=== PATIENT | male | born 1960 | race Caucasian/White ===

== ENCOUNTER 2019-08-07 00:47 | Outpatient (CLI) | payer OTHER, SELFPAY ==
[2019-08-07 17:00] LABS: SARS-CoV-2 RNA PCR Negative
== END 2019-08-07 00:48 | disposition home or self-care (01) ==
LOC: ANHCOVIDDT 00:47
PROVIDERS: Visit Provider Orthopaedic Surgery
DX: S83.8X9A Sprain of other specified parts of unspecified knee, initial encounter (principal); X58.XXXA Exposure to other specified factors, initial encounter
CPT/HCPCS: 87635; C9803; U0003

== ENCOUNTER 2019-08-07 09:26 | Outpatient (CLI) | payer OTHER, SELFPAY ==
--- NOTE | 2019-08-07 09:31 | ECG_ITS ---
Measurements Intervals [place] Rate: 79 P: LA: 0 QRS: 19 QRSD: 91 T: 27 QT: 354 QTc: 406 Interpretive Statements ATRIAL FIBRILLATION ABNORMAL ECG Electronically Signed On 08-07-2019 10:11:40 CDT by Caleb Liriano D.O.
[2019-08-07 10:40] LABS: Blood Urea Nitrogen 22 mg/dL (9-20); Calcium 9.2 mg/dL (8.4-10.2); Carbon Dioxide 27 mmol/L (22-30); Chloride 105 mmol/L (98-107); Estimated Glomerular Filt Rate > 60; Glucose 94 mg/dL (75-110); Potassium 4.3 mmol/L (3.4-5.0); Sodium 138 mmol/L (137-145)
== END 2019-08-07 09:27 | disposition home or self-care (01) ==
PROVIDERS: Anesthesiology; PCP Family Medicine; Visit Provider Orthopaedic Surgery
DX: S83.8X9A Sprain of other specified parts of unspecified knee, initial encounter (principal); X58.XXXA Exposure to other specified factors, initial encounter; R94.31 Abnormal electrocardiogram [ECG] [EKG]
CPT/HCPCS: 36415; 80048; 87635; 93005; C9803; U0003

== ENCOUNTER 2019-08-09 01:35 | Day surgery (SDC) | payer OTHER, SELFPAY ==
[2019-08-01 13:18] VITALS: BMI 32.7
--- NOTE | 2019-08-04 13:07 | P.HP_ITS ---
H&P: HPI History of Present Illness Chief complaint: Left Knee Medial Meniscal Tear Narrative: Phuc White is a 59 year old male Who presents with left knee pain which started after he was raking leaves. He has pain medially and laterally. He has problems twisting or turning squatting kneeling going up and down stairs. This been ongoing for several months now. He has mechanical symptoms and swelling in the knee occasionally has symptoms are worse with activities somewhat relieved by rest. Despite conservative measures on his own and treatment with the [facility] his symptoms continue. He has had cortisone therapy and anti-inflammatories without significant relief. An MRI scan was done that shows a communicating flap tear of the posterior horn and body of the medial meniscus. The body of the medial meniscus is extruded 3 mm medially. There is mild to moderate thinning of the medial femoral cartilage. There are myxoid degenerative changes of the ACL noted. Rest of the stabilizing structures are unremarkable lateral meniscus is intact. At this point the patient is aware the above findings he knows he has some pre-existing osteoarthritis and may not get full relief is any pain from knee arthroscopy every like to proceed. Review of Systems Review of Systems: All systems reviewed & are unremarkable except as noted in HPI and below PMFSH Social History Social History Gender identity (if verbalized by the patient): Male Meds Home Medications and Allergies Home Medications Medication Instructions Recorded Confirmed Type furosemide [Lasix] 20 mg PO DAILY 08/01/19 08/01/19 History levothyroxine 20 mcg PO DAILY 08/01/19 08/01/19 History metoprolol succinate 200 mg PO BID 08/01/19 08/01/19 History rivaroxaban [Xarelto] 20 mg PO DAILY 08/01/19 08/01/19 History simvastatin 15 mg PO DAILY 08/01/19 08/01/19 History Allergies Allergy/AdvReac Type Severity Reaction Status Date / Time No Known Allergies Allergy Unknown Verified 08/01/19 13:40 Exam Narrative: Exam Narrative: On exam the patient is noted be well-developed well-nourished male no acute distress. HEENT exam within normal limits. Heart regular rate rhythm. Lungs clear auscultation. Abdomen benign. Extremities showed the patient's left knee to be painful with manipulation and range of motion. He has tenderness on the medial joint line with a positive Jerald exam negative Layla knee joint is otherwise stable strength is 5 5. Hips move well negative Stinchfield negative NAYELY. He has mild effusion swelling left knee mild subpatellar crepitation. Neurovascular is intact. Skin is intact. Central nervous system exam within normal limits. Assessment and Plan Additional Plan By MRI and exam the patient is noted have a medial meniscal tear of left knee as described above. The patient has discussed risks benefits limitations and alternatives of surgery in great detail with Dr. Fish he is now to proceed with left knee arthroscopy partial medial meniscectomy proceed as indicated. Patient is scheduled to go surgery 08/09/[address] [facility] Dr. Fish. The patient voiced understanding agrees above plan.
[2019-08-09] VITALS (10 sets, daily range): BP systolic 106–166; BP diastolic 86–116; PULSE 72–91; RESP 12–20; TEMP 35.3–36.2; O2SAT 95–100
--- NOTE | 2019-08-09 07:08 | WPDHPUPDATE1 ---
History and Physical Update Update Date/Time: 08/09/19 07:08 History and Physical has been reviewed, including an updated exam of the patient. There are NO changes in the patient's condition. Risks, benefits, and alternatives have been discussed and questions answered. Patient agrees to proceed with procedure.
[2019-08-09] MEDS: LACTATED RINGERS 1,000 ML 30 ML IV CONT ×2 (08:45→11:27)
--- NOTE | 2019-08-09 09:44 | P.PNAN_ITS ---
Anes - Initial Pre Proc Eval Procedure: Operation Date: 08/09/19 10:30 Proposed Procedures p Left Knee Arthroscopy, Partial Medial Meniscectomy, Proceed As Indicated - Abhinav Fish MD Date/Time: 08/09/19 09:44 Surgeon: Abhinav Fish MD Pre Op Diagnosis: Left Knee Medial Meniscal Tear Patient Data Age: 59 Gender: M Height: 1.88 m Weight: 115.7 kg Allergies Allergy/AdvReac Type Severity Reaction Status Date / Time No Known Allergies Allergy Unknown Verified 08/09/19 09:06 Home Medications Medication Instructions Recorded Confirmed Type furosemide [Lasix] 20 mg PO DAILY 08/01/19 08/09/19 History levothyroxine 20 mcg PO DAILY 08/01/19 08/09/19 History metoprolol succinate 200 mg PO BID 08/01/19 08/09/19 History rivaroxaban [Xarelto] 20 mg PO DAILY 08/01/19 08/09/19 History simvastatin 15 mg PO DAILY 08/01/19 08/09/19 History hydrocodone-acetaminophen [[place]] 1 tablet PO Q6H PRN #40 tablet 08/09/19 Rx Patient hx anesthesia problems: none Family hx anesthesia problems: none PMFSH Past Medical History Medical History (Updated 08/08/19 @ 08:09 by Reji Perez DO) Atrial fibrillation History of left inguinal hernia Hyperlipidemia Hypertension Hypothyroidism Osteoarthritis Social History Social History Gender identity (if verbalized by the patient): Male Anes - Eval Final PreProcedure Day of Procedure 08/09/19 09:44 Patient weight: obese Heart: regular rate and rhythm Lungs: clear to auscultation and normal air movement Airway: Mallampati scale class III Neurological: alert and oriented Last oral intake: >/= 8 hours ASA classification: III Emergent: no Anesthetic plan: proceed Anesthesia type and monitoring: general LMA and standard monitoring Informed Consent: The patient's anesthetic plan and its attendant risks and benefits were discussed with the patient/family/POA. Questions were solicited and answers provided to the satisfaction of the patient/family/POA.
[2019-08-09] MEDS: ceFAZolin 2 GM/D5W 50 ML 2 GM/50 ML BAG IVPB (10:34)
[2019-08-09] MEDS: LIDO 1%/EPINEPHRINE 1:100,000 20 ML VIAL INFILTRATE (11:01)
--- NOTE | 2019-08-09 11:12 | PM.PROC ---
Procedure Note - Detailed Date of procedure: 08/09/19 Pre-op diagnosis: Left Knee Medial Meniscal Tear Post-op diagnosis: same Procedure performed: [Left] knee arthroscopy with partial meniscetomy Description of procedure: Patient brought to the operating room and anesthetic was administered. The knee was steriley prepped and drapped in the usual manner. Standard portals were used. Superior medial portal was used for the outflow cannula, inferior lateral portal was used for the scope, inferior medial portal was used for the instruments. Arthroscopy was performed, the patellar femoral joint degenerative changes. The medial compartment showed a complex tear. The lateral compartment showed fraying. The ACL was intact. Using baskets and nan the meniscal tear was trimmed back to a stable base so the nothing further could be pulled into the joint. Any loose or delaminated fragments were gently trimmed to a stable base. At this point the instruments were withdrawn, sutures placed and patient left the operating room in satisfactory condition. Anesthesia: GETA Surgeon: Abhinav Fish MD Estimated blood loss (mL): 20 Drains: No Packing: No Pathology: none sent Complications: No immediate complications Condition: stable Disposition: PACU
--- NOTE | 2019-08-09 12:13 | SUR.PHASEI ---
1200; DR LOCO NOTIFIED OF PT BP. DIASTOLIC RUNNING LOW 100'S. STATES OK UNLESS DIASTOLIC INCREASES TO 110. WILL CONTINUE TO MONITOR
--- NOTE | 2019-08-09 13:36 | SUR.PHASEII ---
1336 spoke with boss, hes on his way will take about 45 minutes
--- NOTE | 2019-08-09 16:26 | SUR.PHASEII ---
1420 called central to get pt crutches, didn't have any at home, weight as tolerated, but pt a little unsteady. crutch training done with pt prior to discharge
== END 2019-08-09 15:00 | disposition home or self-care (01) ==
PROVIDERS: PCP Family Medicine; Visit Provider Orthopaedic Surgery
PROC: (CPT 29870; principal; 2019-08-09 10:30)
DX: M23.332 Other meniscus derangements, other medial meniscus, left knee (principal); I48.91 Unspecified atrial fibrillation; I10 Essential (primary) hypertension; E78.5 Hyperlipidemia, unspecified; E03.9 Hypothyroidism, unspecified; M19.90 Unspecified osteoarthritis, unspecified site; Z79.01 Long term (current) use of anticoagulants; E66.9 Obesity, unspecified; Z68.35 Body mass index [BMI] 35.0-35.9, adult
CPT/HCPCS: 29881; J0131; J0690; J1100; J1170; J2250; J2405; J2704; J3010; J7120

== ENCOUNTER 2019-08-22 15:39 | Outpatient (CLI) | payer OTHER, SELFPAY ==
--- NOTE | ~2019-08-22 | US_ITS ---
EXAMINATION: US venous doppler [facility] DATE: 08/22/2019 16:22 INDICATION: Meniscus tear of the left knee, left lower limb pain TECHNIQUE: Camacho scale images without and with compression and Doppler images of the left lower extrem ity veins were obtained. COMPARISON: None FINDINGS: The left common femoral vein, profunda femoral vein, femoral vein, popliteal vein, peroneal trunk, posterior tibial veins, and greater saphenous vein are patent. IMPRESSION: 1. Patent left lower extremity veins. No evidence of deep venous thrombosis. Reviewed, dictated and finalized at location A.
== END 2019-08-22 15:40 | disposition home or self-care (01) ==
PROVIDERS: PCP Family Medicine; Visit Provider Orthopaedic Surgery
DX: Z09 Encounter for follow-up examination after completed treatment for conditions other than malignant neoplasm (principal); S83.207A Unspecified tear of unspecified meniscus, current injury, left knee, initial encounter
CPT/HCPCS: 93971